=== PATIENT | female | born 1985 | race Caucasian/White ===

== ENCOUNTER → 2016-07-30 | Outpatient (CLI) | payer BC ==
[~2016-07-30] MED LIST: ADDE20 PO; CORT1SOL RIGHT EAR
--- NOTE | 2016-07-31 13:39 | EKG ---
Date Performed: 07/30/2016 Time Performed: 16:34:11 PTAGE: 30 years EKG: Sinus rhythm POSSIBLE RIGHT VENTRICULAR CONDUCTION DELAY BORDERLINE ECG Compared to prior tracing no significant change PREVIOUS TRACING : 01/02/2016 09.26 DOCTOR: Herbert Magaña Interpretating Date/Time 07/31/2016 13:35:46
== END ==
LOC: HCAV 16:12
PROVIDERS: ATTEND Psychiatry & Neurology Child & Adolescent Psychiatry
DX: F90.0 Attention-deficit hyperactivity disorder, predominantly inattentive type (principal); F43.10 Post-traumatic stress disorder, unspecified; R94.31 Abnormal electrocardiogram [ECG] [EKG]
CPT/HCPCS: 93005

== ENCOUNTER 2016-12-23 18:18 | Emergency (ER) | payer BC ==
[~2016-12-23] VITALS: Ht 157.5 cm; Wt 75.0 kg
[2016-12-23 18:19] VITALS: BP 155/99; PULSE 96; RESP 24; TEMP 98.7; O2SAT 100
[2016-12-23 19:16] VITALS: BP 136/77; PULSE 93; RESP 18; O2SAT 99
[2016-12-23] MEDS ORDERED: IBUPROFEN 600 MG TAB PO ONE (19:30)
--- NOTE | 2016-12-23 19:47 | PD ---
HPI Chief Complaint: Medical Clearance Time Seen by Provider: 19:27 Travel History International Travel<30 days: No Contact w/Intl Traveler<30days: No Traveled to known affect area: No History of Present Illness HPI Patient is a 31-year-old female presents emergency department for evaluation of abdominal swelling. Patient states that she approximately 4 weeks ago had a tummy tuck by a plastic surgeon in [place]. She states that since then she's had to have a seroma drained over the right side, she is now noticed that there is some swelling on the left side of her abdomen. Denies any nausea vomiting diarrhea constipation or chest pain. PFSH Past Medical History Hx Anticoagulant Therapy: No ADD: Yes Asthma: Yes Anxiety: Yes Diabetes: No Diminished Hearing: No Tetanus Vaccination: > 5 Years Influenza Vaccination: No ?: Not LMP: IRREGULAR : 7 Para: 2 Miscarriage: 4 : 1 Past Surgical History Abdominal Surgery: Yes (GASTRIC HERNIA REPAIR, TUMMY TUCK) Appendectomy: Yes Section: Yes Other Surgery: Yes (CYST REMOVED FROM RIGHT KNEE, LIPO) Social History Alcohol Use: Yes (OCC) Tobacco Use: No Substance Use: No Allergies-Medications (Allergen,Severity, Reaction): Coded Allergies: No Known Allergies (Verified , 12/23/16) Reported Meds & Prescriptions Reported Meds & Active Scripts Active Reported Adderall (Amphetamine-Dextroamphetamine) 20 Mg Tab 20 Mg PO BID Avoid late evening doses. Space doses at least 4 to 6 hours if more than once/day dosing. Review of Systems Except as stated in HPI: all other systems reviewed are Neg Physical Exam Narrative GENERAL: Well-developed well-nourished no obvious distress SKIN: Focused skin assessment warm/dry. HEAD: Atraumatic. Normocephalic. EYES: Pupils equal and round. No scleral icterus. No injection or drainage. ENT: No nasal bleeding or discharge. Mucous membranes pink and moist. NECK: Trachea midline. No JVD. CARDIOVASCULAR: Regular rate and rhythm. No murmur appreciated. RESPIRATORY: No accessory muscle use. Clear to auscultation. Breath sounds equal bilaterally. GASTROINTESTINAL: Abdomen soft, non-tender, nondistended. Hepatic and splenic margins not palpable. No cellulitis, no mass felt, no swelling seen. MUSCULOSKELETAL: No obvious deformities. No clubbing. No cyanosis. No edema. NEUROLOGICAL: Awake and alert. No obvious cranial nerve deficits. Motor grossly within normal limits. Normal speech. PSYCHIATRIC: Appropriate mood and affect; insight and judgment normal. Data Data Last Documented VS Vital Signs Date Time Temp Pulse Resp B/P (MAP) Pulse Ox O2 Delivery O2 Flow Rate FiO2 12/23/16 21:23 12/23/16 19:16 93 18 99 Room Air 12/23/16 18:19 98.7 Orders Orders Ibuprofen (Motrin) (12/23/16 19:30) Us Soft Tissue (12/23/16 ) MDM Medical Decision Making Medical Screen Exam Complete: Yes Emergency Medical Condition: Yes Differential Diagnosis Seroma, hematoma, postoperative changes. Acute abdomen unlikely. Narrative Course Patient roomed in the emergency department, bedside ultrasound shows that the patient does have a persistent seroma on the right and hematoma on the left. This was discussed with the patient, at this time there is no indication for emergent drainage does not appear infected both on clinical exam and ultrasound. Vital signs are stable. Discussed need follow-up with her plastic surgeon, she asked for us urgent name in the area and I provided 1 but I have explained to her that it may be difficult to get a surgeon the area to do her postoperative care. She is stable for discharge Diagnosis Primary Impression: Abdominal wall hematoma Additional Impression: Abdominal wall seroma Referrals: Micaela Yang MD, Carl W. III MD Disposition: 01 DISCHARGE HOME Condition: Stable Monico Kumar MD Dec 23, 2016 19:47
--- NOTE | 2016-12-23 20:25 | RADRPT ---
EXAM DATE/TIME: 12/23/2016 19:39 [facility] COMPARISON: No previous studies available for comparison. INDICATIONS : Hematoma. MEDICAL HISTORY : Asthma. ADD. SURGICAL HISTORY : Appendectomy. . Abdominalplasty. Right knee cyst removal. Gastric hernia repair. ENCOUNTER: Initial ACUITY: 1 month PAIN SCORE: 2/10 LOCATION: Abdomen. AREA EVALUATED: Abdominal wall. FINDINGS: There is a 7 mm thick, flat/broad subcutaneous fluid collection of the right side anterior abdominal wall that appears simple. Disc shaped fluid collection measuring 8.8 x 8.6 cm diameter x 3.4 cm thickness seen in the left lowe r quadrant abdominal wall. This is subcutaneous and heterogeneous. No internal vascularity. No surrou nding hyperemia. CONCLUSION: Subcutaneous fluid collections of the anterior abdominal wall as above typical of a seroma on the rig ht and a hematoma on the left. No evidence of abscess. Emiliano Velez MD on December 23, 2016 at 20:21 Board Certified Radiologist. This report was verified electronically.
== END 2016-12-23 21:23 | disposition home or self-care (01) ==
LOC: NEPC 18:18
DX: K91.872 Postprocedural seroma of a digestive system organ or structure following a digestive system procedure (principal); J45.909 Unspecified asthma, uncomplicated; F41.9 Anxiety disorder, unspecified; Z79.899 Other long term (current) drug therapy
CPT/HCPCS: 76999; 99285

== ENCOUNTER 2017-03-08 14:42 | Emergency (ER) | payer BC ==
[~2017-03-08] VITALS: Ht 157.5 cm; Wt 78.7 kg
[~2017-03-08 14:42] MED LIST changes: -CORT1SOL RIGHT EAR
[2017-03-08 14:51] VITALS: BP 153/84; PULSE 84; RESP 18; TEMP 98.4; O2SAT 100
[2017-03-08] MEDS ORDERED: SODIUM CHLORIDE 0.9% FLUSH 10 ML FLUSH IV FLUSH PRN (15:15)
[2017-03-08] MEDS ORDERED: methylPREDNISolone SOD SUCC 125 MG/2 ML VIAL IV PUSH ONE (15:15)
[2017-03-08] MEDS ORDERED: diphenhydrAMINE HCL 50 MG/ML VIAL IVP ONE (15:15)
[2017-03-08] MEDS ORDERED: FAMOTIDINE 20 MG/2 ML VIAL IV PUSH ONE (15:15)
--- NOTE | 2017-03-08 15:19 | PD ---
HPI Chief Complaint: Allergic/Adverse Reaction Time Seen by Provider: 15:05 Travel History International Travel<30 days: No Contact w/Intl Traveler<30days: No Traveled to known affect area: No History of Present Illness HPI 31-year-old female presents to the emergency department for evaluation of possible allergic reaction. Patient takes Adderall which she has taken since she was 16 years old. However, over the weekend, she took pills. She last took this on Tuesday. She states that she noticed some redness under her eyes that she woke up this morning. While at work, she also noticed redness to her neck in her bilateral shoulders. She denies any shortness of breath or wheezing. No swelling lips, tongue, throat. No difficulty breathing or swallowing. Patient states she took Benadryl 25 mg PO approximately an hour ago. He points no other medical problems. She takes no other prescribed medications. Severity is [id number]. No exacerbating or alleviating factors. 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 Space doses at least 4 to 6 hours if more than once/day dosing. Review of Systems Except as stated in HPI: all other systems reviewed are Neg Physical Exam Narrative GENERAL: Well-nourished, well-developed female patient, ambulatory. Afebrile. SKIN: Focused skin assessment warm/dry. Patient has erythematous patches/ plaques to the neck and upper chest with some mild erythema under the bilateral eyes. HEAD: Normocephalic. Atraumatic. ENT: Mucosa pink and moist. No erythema or exudates. No uvular edema. No uvular , palatal, or tonsillar deviation. Airway patent. Nasal turbinates appear normal without nasal blood, purulent drainage or septal hematoma. Bilateral tympanic membranes are clear without erythema or perforation. EYES: No scleral icterus. No injection or drainage. NECK: Supple, trachea midline. No JVD or lymphadenopathy. CARDIOVASCULAR: Regular rate and rhythm without murmurs, gallops, or rubs. RESPIRATORY: Breath sounds equal bilaterally. No accessory muscle use. Lungs sounds are clear to auscultation. GASTROINTESTINAL: Abdomen soft, non-tender, nondistended. MUSCULOSKELETAL: No cyanosis, or edema. BACK: Nontender without obvious deformity. No CVA tenderness. Data Data Last Documented VS Vital Signs Date Time Temp Pulse Resp B/P (MAP) Pulse Ox O2 Delivery O2 Flow Rate FiO2 03/08/17 14:51 98.4 84 18 153/84 (107) 100 Orders Orders Iv Access Insert/Monitor (03/08/17 15:10) Diphenhydramine Inj (Benadryl Inj) (03/08/17 15:15) Methylprednisolone So Succ Inj (Solumedr (03/08/17 15:15) Famotidine Inj (Pepcid Inj) (03/08/17 15:15) Sodium Chloride 0.9% Flush (Ns Flush) (03/08/17 15:15) MDM Medical Decision Making Medical Screen Exam Complete: Yes Emergency Medical Condition: Yes Medical Record Reviewed: Yes Differential Diagnosis Allergic reaction versus urticaria versus eczema versus contact dermatitis Narrative Course 31-year-old female presents to the emergency department for evaluation of possible allergic reaction. No evidence of anaphylaxis on exam. IV access established. Patient given Benadryl 25 mg IV, Solu-Medrol 125 mg IV, famotidine 20 mg IV. Upon reexamination, rash is slightly better. Patient was discharged prescription for prednisone, Zantac. She is continue Benadryl. She verbalizes agreement and understanding. The patient was discharged in stable condition with instructions, including return instructions and follow up instructions. Diagnosis Primary Impression: Allergic reaction Qualified Codes: T78.40XA - Allergy, unspecified, initial encounter Referrals: Primary Care Physician call for appointment Patient Instructions: General Allergic Reaction (ED), General Instructions Departure Forms: Tests/Procedures, Work Release Enter return to work date: Mar 10, 2017 Additional Instructions: Take Benadryl 25-50 mg every 6-8 hours as needed for itching, rash. Take prednisone as started. Start this tomorrow. Take Zantac as directed. Follow-up with your primary care physician. Return to the emergency department for any acute worsening of symptoms. Med/Other Pt SpecificInfo: Prescription(s) given Scripts Prednisone (Prednisone) 20 Mg Tab 40 MG PO DAILY, #10 TAB 0 Refills Take 40 mg (2 tablets) daily for 5 days Prov: Felipa Garcia 03/08/17 Ranitidine (Zantac) 150 Mg Tab 150 MG PO BID for Reduce Stomach Acid for 7 Days, #14 TAB 0 Refills Prov: Felipa Garcia 03/08/17 Disposition: 01 DISCHARGE HOME Condition: Stable Felipa Garcia Mar 08, 2017 15:19
[2017-03-08] MEDS ORDERED: PRED20 PO (16:02)
[2017-03-08] MEDS ORDERED: ZANT150T2 PO (16:02)
== END 2017-03-08 16:17 | disposition home or self-care (01) ==
LOC: PHEFT 14:42
DX: T78.40XA Allergy, unspecified, initial encounter (principal); J45.909 Unspecified asthma, uncomplicated; F41.9 Anxiety disorder, unspecified; Z79.899 Other long term (current) drug therapy
CPT/HCPCS: 96374; 96375; 99284; J1200; J2930

== ENCOUNTER → 2017-04-25 | Outpatient (CLI) | payer BC ==
[~2017-04-25] MED LIST changes: +PRED20 PO; +ZANT150T2 PO
--- NOTE | 2017-04-25 15:03 | EKG ---
Date Performed: 04/25/2017 Time Performed: 08:40:06 PTAGE: 31 years EKG: Sinus rhythm Since previous tracing, no significant change noted NORMAL ECG PREVIOUS TRACING : 07/30/2016 16.34 DOCTOR: Finesse Galeas Interpretating Date/Time 04/25/2017 15:01:36
== END ==
LOC: HCAV 08:21
PROVIDERS: ATTEND Psychiatry & Neurology Child & Adolescent Psychiatry
DX: F90.0 Attention-deficit hyperactivity disorder, predominantly inattentive type (principal); F43.10 Post-traumatic stress disorder, unspecified
CPT/HCPCS: 80307; 93005

== ENCOUNTER 2017-09-22 06:25 | Emergency (ER) | payer BC ==
[~2017-09-22] VITALS: Ht 157.5 cm; Wt 78.9 kg
[2017-09-22 06:34] VITALS: BP 143/90; PULSE 76; RESP 18; TEMP 98.3; O2SAT 100
--- NOTE | 2017-09-22 07:44 | PD ---
HPI Chief Complaint: Musculoskeletal Complaint Time Seen by Provider: 07:39 Travel History International Travel<30 days: No Contact w/Intl Traveler<30days: No Traveled to known affect area: No History of Present Illness HPI This 31-year-old female is complaining of pain in the right elbow. He had a weekend where she was quite active. She lifted something heavy and then went bowling and then went to her duty and started having pain in the right elbow. 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 There is no sensory deficit. She does use her hands a lot at work. PFSH Past Medical History Hx Anticoagulant Therapy: No ADD: Yes Asthma: Yes Anxiety: Yes Diabetes: No Diminished Hearing: No Tetanus Vaccination: > 5 Years Influenza Vaccination: No ?: Not LMP: 09/09/17 : 7 Para: 2 Miscarriage: 4 : 1 Past Surgical History Abdominal Surgery: Yes (GASTRIC HERNIA REPAIR, TUMMY TUCK) Appendectomy: Yes Section: Yes Other Surgery: Yes (CYST REMOVED FROM RIGHT KNEE, LIPO) Social History Alcohol Use: Yes (COUPLE TIMES PER WEEK) Tobacco Use: Yes (/2 PPD) Substance Use: No Allergies-Medications (Allergen,Severity, Reaction): Coded Allergies: No Known Allergies (Verified Adverse Reaction, Unknown, 03/08/17) Reported Meds & Prescriptions Reported Meds & Active Scripts Active Reported Adderall (Amphetamine-Dextroamphetamine) 20 Mg Tab 20 Mg PO BID Avoid late evening doses. Space doses at least 4 to 6 hours if more than once/day dosing. Review of Systems General / Constitutional: No: Fever, Chills Eyes: No: Diploplia HENT: No: Headaches Cardiovascular: No: Chest Pain or Discomfort, Palpitations Respiratory: No: Cough, Shortness of Breath, Wheezing Gastrointestinal: No: Nausea, Vomiting Genitourinary: No: Urgency, Frequency Musculoskeletal: Positive: Pain, No: Myalgias, Arthralgias Skin: No Rash Neurologic: Positive: Weakness Hematologic/Lymphatic: No: Easy Bruising Physical Exam Narrative GENERAL: Well-developed female SKIN: Focused skin assessment warm/dry. HEAD: Atraumatic. Normocephalic. EYES: Pupils equal and round. No scleral icterus. No injection or drainage. ENT: No nasal bleeding or discharge. Mucous membranes pink and moist. NECK: Trachea midline. No JVD. MUSCULOSKELETAL: No obvious deformities. No clubbing. No cyanosis. No edema. Examination of the right elbow there is fairly good range of motion. There is tenderness of the lateral epicondyles. She does have weakness of the hand which she says is due to the pain. The sensation is intact. NEUROLOGICAL: Awake and alert. No obvious cranial nerve deficits. Motor grossly within normal limits. Normal speech. PSYCHIATRIC: Appropriate mood and affect; insight and judgment normal. Data Data Last Documented VS Vital Signs Date Time Temp Pulse Resp B/P (MAP) Pulse Ox O2 Delivery O2 Flow Rate FiO2 09/22/17 06:34 98.3 76 18 143/90 (107) 100 Orders Orders Elbow, Complete (4 Vws) (09/22/17 07:40) [facility] Medical Decision Making Medical Screen Exam Complete: Yes Emergency Medical Condition: Yes Medical Record Reviewed: Yes Differential Diagnosis Differential includes lateral epicondylitis Narrative Course X-rays negative. Presentation is consistent with lateral epicondylitis. I recommended she use a counter brace and anti-inflammatory medication and try to modify her activity. She is stable for discharge Diagnosis Primary Impression: Lateral epicondylitis of right elbow Additional Instructions: Use ibuprofen for pain. Use counter brace, try to modify activity to avoid pain. Follow-up with physical therapy or orthopedic Disposition: 01 DISCHARGE HOME Condition: Stable Marquez Jade MD Sep 22, 2017 07:44
--- NOTE | 2017-09-22 09:21 | RADRPT ---
EXAM DATE: 09/22/2017 7:58 AM EDT AGE/SEX: 31 years / Female INDICATIONS: Right elbow pain after strenuous use 3 months ago. Painful flexion & extension of joint . Tender to touch on medial & lateral sides. CLINICAL DATA: This is the patient's initial encounter. Patient reports that signs and symptoms have been present for 3 months and indicates a pain score of 6/10. MEDICAL/SURGICAL HISTORY: None. None. COMPARISON: No prior exams available for comparison. FINDINGS: Bony structures are intact and in normal alignment. Joints are intact without dislocation or signifi cant arthropathy. Osseous density is normal. Soft tissues are unremarkable. No radiopaque foreign bodies seen. CONCLUSION: No evidence of acute process or significant arthropathy. Electronically signed by: He Neely MD 09/22/2017 9:19 AM EDT
== END 2017-09-22 09:35 | disposition home or self-care (01) ==
LOC: PHED 06:25
DX: M77.11 Lateral epicondylitis, right elbow (principal); F41.9 Anxiety disorder, unspecified; J45.909 Unspecified asthma, uncomplicated; F17.200 Nicotine dependence, unspecified, uncomplicated
CPT/HCPCS: 73080; 99283